=== PATIENT | female | born 1975 | race Caucasian/White ===

== ENCOUNTER 2018-08-30 02:48 | Inpatient (IN) | payer MEDICAID, OTHER ==
[~2018-08-30] VITALS: Ht 165.1 cm; Wt 68.0 kg
[2018-08-30] MEDS ORDERED: MAGNESIUM 2 G PREMIX 50 ML IV STA (03:46)
[2018-08-30] MEDS ORDERED: IPRATROPIUM BROMIDE (0.02%) 0.5MG/2.5ML NEB HHN STA (03:46)
[2018-08-30] MEDS ORDERED: ALBUTEROL (0.083%) 2.5MG/3ML NEB HHN STA (03:46)
[2018-08-30] MEDS ORDERED: METHYLPREDNISOLONE SOD SUCC 125 MG/2 ML VIAL IV STA (03:46)
[2018-08-30 06:41] LABS: CHLORIDE 110 mEq/L (98-107)
[2018-08-30 06:42] LABS: HEMOGLOBIN 12.5 g/dL (12.0-16.0); MEAN CORPUSCULAR HEMOGLOBIN 26.2 pg (28.0-32.0); MEAN CORPUSCULAR VOLUME 79.6 fL (81.0-99.0); PLATELET 224 x1000/uL (130-400); RED BLOOD CELL COUNT 4.78 mill/uL (4.2-5.4); RED CELL DISTRIBUTION WIDTH 15.5 % (11.6-14.6)
[2018-08-30] MEDS ORDERED: LORAZEPAM 0.5MG TABLET PO PRN (08:45)
[2018-08-30] MEDS ORDERED: GUAIFENESIN 200MG/10ML SUGAR FREE UDC PO PRN (08:45)
[2018-08-30] MEDS ORDERED: NITROGLYCERIN 0.4MG TABLET SL SL PRN (08:45)
[2018-08-30] MEDS ORDERED: KETOROLAC 15MG/ML VIAL IV PRN (08:45)
[2018-08-30] MEDS ORDERED: CLONIDINE 0.1MG TABLET PO PRN (08:45)
[2018-08-30] MEDS ORDERED: MAGNESIUM/ALUMINUM HYDROXIDE/SIMETHICONE 30ML UDC PO PRN (08:45)
[2018-08-30 10:15] VITALS: BP 134/74
[2018-08-30] MEDS ORDERED: ONDANSETRON HCL 4MG/2ML INJ IV PRN (11:00)
[2018-08-30] MEDS ORDERED: DOCUSATE SODIUM 100MG CAPSULE PO PRN (11:00)
[2018-08-30] MEDS ORDERED: DIPHENHYDRAMINE 50MG/ML VIAL IV PRN (11:00)
[2018-08-30] MEDS ORDERED: IPRATROPIUM/ALBUTEROL 0.5-3(2.5)MG/3ML NEB INH PRN (11:00)
[2018-08-30] MEDS ORDERED: NA PHOS,M-B/NA PHOS,DI-BA ENEMA 118ML PR PRN (11:00)
[2018-08-30 12:00] VITALS: BP 100/67
[2018-08-30 12:04] VITALS: BP 134/74
[2018-08-30] MEDS ORDERED: ALBU18HF2 IH (12:19)
[2018-08-30] MEDS: GUAIFENESIN/DM 600MG/30MG ER TAB 12HR PO SCH ×2 (12:21→21:21)
[2018-08-30] MEDS: FAMOTIDINE 20MG TABLET PO SCH ×2 (12:21→21:22)
[2018-08-30] MEDS: ACETAMINOPHEN 325MG TABLET PO PRN ×2 (12:21→21:21)
[2018-08-30] MEDS: IPRATROPIUM/ALBUTEROL 0.5-3(2.5)MG/3ML NEB HHN SCH ×3 (13:09→20:34)
[2018-08-30] MEDS: METHYLPREDNISOLONE SOD SUCC 125 MG/2 ML VIAL IV SCH ×2 (13:45→21:48)
[2018-08-30] MEDS ORDERED: POTASSIUM CHLORIDE 20MEQ/PACKET PO NR (15:30)
[2018-08-30 16:00] VITALS: BP 106/62
[2018-08-30 20:00] VITALS: BP 101/59
[2018-08-30] MEDS ORDERED: ZOLPIDEM TARTRATE 5MG TABLET PO PRN (21:00)
[2018-08-30 23:55] VITALS: BP 110/63
[2018-08-31] MEDS: IPRATROPIUM/ALBUTEROL 0.5-3(2.5)MG/3ML NEB HHN SCH ×4 (00:56→11:56)
[2018-08-31 04:00] VITALS: BP 99/62
[2018-08-31] MEDS: METHYLPREDNISOLONE SOD SUCC 125 MG/2 ML VIAL IV SCH (06:22)
[2018-08-31 08:00] VITALS: BP 105/49
[2018-08-31] MEDS: GUAIFENESIN/DM 600MG/30MG ER TAB 12HR PO SCH (08:36)
[2018-08-31] MEDS: FAMOTIDINE 20MG TABLET PO SCH (08:37)
[2018-08-31] MEDS: ACETAMINOPHEN 325MG TABLET PO PRN (09:42)
[2018-08-31 11:15] LABS: *AMPHETAMINES SCREEN URINE NEGATIVE (NEGATIVE); *BARBITURATES SCREEN URINE NEGATIVE (NEGATIVE); *BENZODIAZEPINES SCREEN URINE NEGATIVE (NEGATIVE); *COCAINE SCREEN URINE NEGATIVE (NEGATIVE); METHADONE URINE SCREEN NEGATIVE (NEGATIVE); OPIATES URINE SCREEN NEGATIVE (NEGATIVE)
[2018-08-31 11:17] LABS: CANNABINOID URINE SCREEN NEGATIVE (NEGATIVE); PHENCYCLIDINE URINE SCREEN NEGATIVE (NEGATIVE)
== END 2018-08-31 13:53 | disposition home or self-care (01) | DRG 133 ==
LOC: ER 02:54 → 6WST 05:08 → ENRESERV 08:25
PROVIDERS: ADMIT Internal Medicine; ATTEND Internal Medicine
DX: J96.00 Acute respiratory failure, unspecified whether with hypoxia or hypercapnia (principal); J45.901 Unspecified asthma with (acute) exacerbation; E87.6 Hypokalemia
CPT/HCPCS: 36415; 71045; 80305; 83036; 85027; 94640; 94644; 96365; 96366; 96375; 99285; J2930; J3475; J7611; J7620

== ENCOUNTER 2020-04-27 12:32 | Observation (INO) | payer MEDICAID ==
[~2020-04-27] VITALS: Ht 152.4 cm; Wt 78.0 kg
[~2020-04-27 12:32] MED LIST: ALBU18HF2 IH
[2020-04-27] MEDS ORDERED: DOCO200C5 PO (12:55)
== END 2020-04-27 14:15 | disposition home or self-care (01) ==
LOC: 8 EST LDRP 12:32
PROVIDERS: ADMIT Obstetrics & Gynecology; ATTEND Obstetrics & Gynecology
DX: O62.9 Abnormality of forces of labor, unspecified (principal); Z20.828 Contact with and (suspected) exposure to other viral communicable diseases; Z3A.39 39 weeks gestation of pregnancy
CPT/HCPCS: 59025; 87635; G0378; 99281